=== PATIENT | male | born 2000 | race Caucasian/White ===

== ENCOUNTER 2020-01-14 09:37 | Day surgery (SDC) | payer OTHER ==
--- NOTE | 2020-01-14 14:38 | NUR ---
Discharge instructions reviewed with patient. Patient verbalizes understanding. Copy given to patient to take home. Discharged via wheelchair to private car for ride home.
== END 2020-01-14 14:40 | disposition home or self-care (01) ==
LOC: ORSCMMR 09:37 → ORD 09:37 → ORSCMMR 09:39 → ORD 14:40
PROVIDERS: Orthopaedic Surgery
PROC: 0PSP04Z Reposition Right Metacarpal with Internal Fixation Device, Open Approach (ICD-10-PCS; 2020-01-14)
PROC: 0PSP04Z Reposition Right Metacarpal with Internal Fixation Device, Open Approach (ICD-10-PCS; principal; 2020-01-14 11:00)
DX: S62.319A Displaced fracture of base of unspecified metacarpal bone, initial encounter for closed fracture (principal); S60.221A Contusion of right hand, initial encounter
CPT/HCPCS: A9270-GY; J0690; J1100; J2250; J2405; J2704; J3010; J7120